=== PATIENT | male | born 1985 | race Two or more races ===

== ENCOUNTER 2024-05-20 22:19 | Emergency (ER) | payer OTHER ==
[~2024-05-20] VITALS: Ht 167.6 cm; Wt 61.5 kg
[2024-05-20] MEDS: metoclopramide 5 mg/ml inj IV ONE (22:58)
[2024-05-20] MEDS: normal saline 1000ML IV soln IVB ONE (22:59)
[2024-05-20] MEDS: famotidine 20mg tablet PO ONE (22:59)
[2024-05-20 23:13] LABS: BASOPHILS % (AUTO) 0.5 % (0-1); EOSINOPHILS % (AUTO) 0.2 % (0-6); HEMOGLOBIN 14.8 g/dl (14.0-17.9); LYMPHOCYTES # (AUTO) 0.5 X10'3 (1.1-4.8); LYMPHOCYTES % (AUTO) 12.1 % (21-51); MEAN CORPUSCULAR HEMOGLOBIN 32.5 PG (27.0-31.0); MEAN CORPUSCULAR HGB CONC 35.3 g/dL (33.0-36.5); MEAN PLATELET VOLUME 8.4 FL (7.4-10.4); MONOCYTES # (AUTO) 0.2 X10'3 (0-0.9); MONOCYTES % (AUTO) 4.9 % (2-12); NEUTROPHILS # (AUTO) 3.7 X10'3 (1.8-7.7); NEUTROPHILS % (AUTO) 82.3 % (42-75); PLATELET COUNT 134 X10'3 (140-440); RED BLOOD COUNT 4.57 X10'6 (4.70-6.10); WHITE BLOOD COUNT 4.5 X10'3 (4.5-11.0)
[2024-05-20 23:18] LABS: BILIRUBIN,URINE NEGATIVE (Neg); CLARITY,URINE CLEAR (Clear); COLOR,URINE YELLOW (Yellow); GLUCOSE, URINE >=1000 mg/dl (Neg); KETONES,URINE 40 mg/dl (Neg); LEUKOCYTE ESTERASE ,URINE NEGATIVE (Neg); NITRITES, URINE NEGATIVE (Neg); OCCULT BLOOD,URINE SMALL (Neg); PROTEIN,URINE NEGATIVE (Neg)
[2024-05-20 23:22] LABS: UA COLLECTION TYPE URINAL
[2024-05-20 23:23] LABS: BACTERIA,URINE NONE SEEN /HPF (Neg); MUCUS STRANDS NONE SEEN /LPF (Neg); SPERM MODERATE /HPF (NEGATIVE); SQUAMOUS EPITHELIAL CELL,UR NONE SEEN /LPF (FEW); WBC,URINE NONE SEEN /HPF (0-4)
[2024-05-20 23:25] LABS: ALANINE AMINOTRANSFERASE 78 U/L (12-78); ALBUMIN 3.8 G/DL (3.4-5.0); ALBUMIN/GLOBULIN RATIO 0.8 (1.1-1.5); ALKALINE PHOSPHATASE 125 IU/L (46-116); ANION GAP 9 (8-16); BLOOD UREA NITROGEN 9 MG/DL (7-18); BUN/CREATININE RATIO 10.1 (10.0-20.0); CALCIUM 8.9 MG/DL (8.5-10.1); CHLORIDE 91 MMOL/L (99-107); CREATININE 0.89 MG/DL (0.60-1.10); ETHANOL < 10 MG/DL (<10); LIPASE 83 U/L (16-77); SODIUM 124 MMOL/L (135-145); TOTAL CARBON DIOXIDE 24.4 MMOL/L (24-32); TOTAL PROTEIN 8.3 G/DL (6.4-8.2); eCRCL 100 ML/MIN; eGFR > 90 ML/MIN
[2024-05-20 23:36] LABS: ASPARTATE AMINO TRANSFERASE 90 U/L (10-37); POTASSIUM 4.1 MMOL/L (3.5-5.1)
[2024-05-20 23:38] LABS: GLUCOSE 458 MG/DL (70-104)
[2024-05-21] MEDS: normal saline 1000ML IV soln IVB ONE (00:06)
[2024-05-21 00:40] LABS: HEMOGLOBIN A1C 10.3 % (4.5-6.2)
[2024-05-21] MEDS: metFORMIN 500mg tablet PO ONE (01:17)
[2024-05-21] MEDS ORDERED: METF-436 PO (02:58)
[2024-05-21 03:10] VITALS: BP 163/91; PULSE 78; RESP 17; TEMP 97.9; O2SAT 96
== END 2024-05-21 03:12 | disposition home or self-care (01) ==
LOC: ER 22:20
DX: E11.65 Type 2 diabetes mellitus with hyperglycemia (principal); R11.2 Nausea with vomiting, unspecified; R10.13 Epigastric pain; Z79.84 Long term (current) use of oral hypoglycemic drugs
CPT/HCPCS: 36415; 80053; 80320; 81001; 82948; 83036; 83690; 85025; 96361; 96374; 99283; J2765; J7030